=== PATIENT | female | born 1970 | race Two or more races ===

== ENCOUNTER 2022-03-31 10:37 | Emergency (ER) | payer MEDICAID, OTHER ==
[~2022-03-31] VITALS: Ht 172.7 cm; Wt 125.3 kg
[2022-03-31 14:02] VITALS: BP 148/84
[2022-03-31] MEDS ORDERED: DexAMETHasone SOD PHOS 10MG/1ML VIAL INJ IM ONE (15:15)
[2022-03-31] MEDS ORDERED: HYDR-4902 PO (15:26)
[2022-03-31] MEDS ORDERED: ACYC-166 PO (15:26)
== END 2022-03-31 15:27 | disposition home or self-care (01) ==
LOC: ER 10:37
DX: B02.9 Zoster without complications (principal); R51.9 Headache, unspecified
CPT/HCPCS: 96372; 99283; J1100

== ENCOUNTER 2022-04-18 14:38 | Emergency (ER) | payer MEDICAID ==
[~2022-04-18] VITALS: Ht 172.7 cm; Wt 121.8 kg
[~2022-04-18 14:38] MED LIST: ACYC-166 PO; HYDR-4902 PO
[2022-04-18 15:00] VITALS: BP 124/61
[2022-04-18] MEDS ORDERED: IBUPROFEN 800 MG TAB PO ONE (15:30)
[2022-04-18 15:47] LABS: Basophils # (auto) 0 10 ^3/uL (0-0.2); Basophils % (auto) 0.8 % (0.0-2.0); Eosinophils # (auto) 0 10 ^3/uL (0-0.8); Eosinophils % (auto) 0.2 % (0.0-7.0); Hematocrit 42.1 % (36.0-46.0); Lymphocytes # (auto) 1.6 10 ^3/uL (0.4-5.4); Lymphocytes % (auto) 40.7 % (10.0-50.0); Mean Corpuscular Hemoglobin 28.9 pg (28.0-32.0); Mean Corpuscular Hgb Conc. 33.3 g/dL (32.0-36.0); Mean Corpuscular Volume 86.7 fL (80.0-100.0); Monocytes # (auto) 0.2 10 ^3/uL (0-1.3); Monocytes % (auto) 6.4 % (0.0-12.0); Neutrophils % (auto) 51.9 % (37.0-80.0); Nucleated Red Blood Cells % 0.3 %; Red Blood Cells 4.86 10^6/uL (4.0-5.20); Red Cell Distribution Width 13.1 % (11.8-14.3); White Blood Cell 3.8 10^3/uL (4.4-10.8)
[2022-04-18 16:09] LABS: Albumin 3.8 g/dL (3.4-5.0); Calcium 9.3 mg/dL (8.5-10.1); Potassium 3.2 mmol/L (3.5-5.1)
[2022-04-18 16:11] LABS: BUN/Creatinine Ratio 28.8; Bilirubin, Total 0.3 mg/dL (0.2-1.0); Total Protein 7.6 g/dL (6.4-8.2)
[2022-04-18 16:22] LABS: Urine Bacteria NONE SEEN /hpf (None Seen); Urine Blood 3+ /uL (Negative); Urine Mucus FEW (None Seen); Urine Specific Gravity 1.023 (1.001-1.035); Urine WBC 6 /hpf (0 - 5)
== END 2022-04-18 21:14 | disposition left against medical advice (07) ==
LOC: ER 14:38
DX: N20.0 Calculus of kidney (principal)
CPT/HCPCS: 36415; 80053; 81001; 85025